=== PATIENT | female | born 1960 | race Caucasian/White ===

== ENCOUNTER 2020-02-24 09:14 | Emergency (ER) | payer OTHER ==
[2020-02-24 10:12] LABS: Hemoglobin 10.6 g/dL (12.0-16.0); Mean Corpuscular HGB CONC 29.3 g/dL (32.0-36.0); Mean Corpuscular Hemoglobin 26.3 pg (27.0-31.0); Mean Corpuscular Volume 89.8 fL (78.0-98.0); Platelet Count 668 thou/uL (130-400); RBC Distribution Width 13.9 % (11.5-14.5); Red Blood Cell (RBC) Count 4.04 mill/uL (4.20-5.40); White Blood Cell (WBC) Count 51.4 thou/uL (4.8-10.8)
[2020-02-24 10:13] LABS: ALT (SGPT) 8 U/L (8-55); AST (SGOT) 10 U/L (5-34); Albumin 3.3 g/dL (3.4-4.8); Alkaline Phosphatase 87 U/L (40-110); Anion Gap 16 mmol/L (10-20); BUN (Urea Nitrogen) 9 mg/dL (9.8-20.1); Bilirubin, Total 0.4 mg/dL (0.2-1.2); Calc. Creatinine Clearance 0 mL/min (70-130); Calcium 8.8 mg/dL (7.8-10.44); Carbon Dioxide 27 mmol/L (23-31); Chloride 94 mmol/L (98-107); Estimated GFR-MDRD Greater than 90; Globulin 3.8 g/dL (2.4-3.5); Glucose 135 mg/dL (80-115); MDiff Complete? YES; Manual Diff?? YES; Potassium 4.4 mmol/L (3.5-5.1); Protein, Total 7.1 g/dL (6.0-8.3); Sodium 133 mmol/L (136-145)
[2020-02-24] MEDS ORDERED: Sodium Chloride 0.9% 1,000 ML ONE ×2 (10:16→12:52)
[2020-02-24] MEDS ORDERED: Ventolin HFA Inhaler 60 PUFF INHALER ONE (10:16)
--- NOTE | 2020-02-24 10:22 | RAD ---
XR Chest Pa Lat STANDARD HISTORY: Shortness of breath COMPARISON: PET scan examination of 01/14/2020. FINDINGS: Heart size is enlarged. Right paratracheal density could be related to adenopathy. Soft tis samantha density along the right heart border is probably related to the prominent epicardial fat noted on previous PET scan. The lungs are clear of any infiltrative process. IMPRESSION: Cardiomegaly with findings that suggest some adenopathy in the region of the azygos node or right paratracheal region.
[2020-02-24] MEDS ORDERED: Morphine 2 MG/ML SYRINGE ONE (11:07)
--- NOTE | 2020-02-24 11:57 | CT ---
CTA Angio Chest W WO Con 02/24/2020 10:31 AM Indication: 59-year-old female with history of lung cancer, dyspnea and elevated d-dimer Technique: Multiple CTA images were obtained of the thorax with IV contrast. 3-D rendering: MIP summer nstructed images were created and reviewed. Comparison: PET/CT dated January 14, 2020 Findings: Pulmonary arteries: There is some mild mass effect on the main pulmonary arteries bilaterally due to adenopathy and pericardial effusion. No definite central or segmental pulmonary embolus is evident. Heart and Aorta: There is been interval development of a moderate to prominent sized pericardial eff usion. Mediastinum:There is worsening mediastinal lymphadenopathy. There is an enlarged window measuring 2.7 cm. There is a right paratracheal lymph node measuring 2 cm. There is a subcarinal lymph node measuring 1.7 cm. Lungs:The spiculated mass within the apical posterior segment of the left upper lobe has enlarged now measuring 2.3 x 2.1 cm were previously measured 1.5 x 1.8 cm. The additional pulmonary nodule within the left lung apex has also intervally enlarged now measuring 11 mm were previously measured 7 mm. Pleural space: Clear. Upper Abdomen: There are locules of free air seen within the upper abdomen from an identified source . There is diffuse fatty infiltration of liver. There is a stable 2.5 cm left adrenal nodule. There is an ill-defined 1.1 cm right adrenal lesion that was not definitely present on the comparison PET/C T. Osseous Structures: There is scattered degenerative and osteoarthritic change present. No acute frac ture or subluxation demonstrated. Soft tissues:No abnormality. Other findings:None. Impression: 1. No definite central or segmental pulmonary embolus. 2. Worsening moderate to prominent pericardial effusion 3. Enlarging left upper lobe pulmonary nodules, worsening mediastinal lymphadenopathy and new right a drenal lesion suspicious for worsening malignancy. 4. Nonspecific locules of free air within the upper abdomen. Recommend follow-up CT the abdomen and p chapis without additional IV contrast administration for additional characterization.
[2020-02-24] MEDS ORDERED: Iopamidol 370 76% 125 ML VIAL FS ONE (12:04)
[2020-02-24] MEDS ORDERED: Sodium Chloride 0.9% 100 ML BAG ONE (12:04)
--- NOTE | 2020-02-24 12:42 | CT ---
CT Abdomen Pelvis WO Con: 02/24/2020 11:54 AM HISTORY: Free air seen on CTA of the chest; dyspnea and elevated d-dimer COMPARISON: None. TECHNIQUE: Multiple contiguous axial images were obtained and a CT of the abdomen and pelvis without IV contrast . Coronal and sagittal reformats were performed. FINDINGS: This examination is limited for the evaluation of solid organs and vascular structures due to the lac k of intravenous contrast. Lower Chest: There is a moderate to large pericardial effusion. Abdomen: Liver: within normal limits. Bile Ducts: Normal caliber. Gallbladder: No calcified gallstones. Normal caliber wall. Pancreas: within normal limits. Spleen: within normal limits. Adrenals: 2.6 cm left adrenal mass with mean Hounsfield unit value of 6 Kidneys: Contrast in both kidneys is seen from recent contrast exam. Pelvis: Reproductive Organs: No pelvic mass Ureters: Contain contrast from recent contrast exam. Bladder: Filled with contrast from recent contrast examination. This produces streak artifact limitin g evaluation of the pelvis. Bowel: Normal caliber. Scattered diverticula in the colon. Normal appendix Mesenteric Lymph Nodes: No enlarged mesenteric lymph nodes. Peritoneum: A few bubbles of free air are seen in the upper abdomen and within the umbilicus. No free fluid or stranding changes in the abdomen or pelvis. Vessels: Atherosclerotic calcifications in the aorta Retroperitoneum: Within normal limits. Abdominal Wall: There is a small umbilical hernia containing predominantly fat Bones: Degenerative changes in the spine. The patient has a right hip prosthesis. There is a 4.1 cm f luid collection adjacent to the right hip. IMPRESSION: 1. Small bubbles of nonspecific free air in the upper abdomen. This is concerning for perforated visc us but the site of possible perforation is unable to be identified. 2. Diverticulosis 3. Left adrenal adenoma
[2020-02-24 13:05] LABS: Bilirubin Negative (Negative); Blood, Urine Negative (Negative); Clarity Clear (Clear); Glucose, Urine (Dipstick) Negative (Negative); Ketone, Urine 40 mg/dL (Negative); Leukocyte Negative (Negative); Nitrite Negative (Negative); Protein, Urine (Dipstick) Negative (Neg-Trace); Urobilinogen 0.2 mg/dL (Less than 2); pH, Urine 6.5 (5.0-9.0)
== END 2020-02-24 13:30 | disposition short-term general hospital (02) ==
LOC: MADERS 09:14
DX: I31.3 Pericardial effusion (noninflammatory) (principal); D72.829 Elevated white blood cell count, unspecified; D47.3 Essential (hemorrhagic) thrombocythemia; R14.0 Abdominal distension (gaseous); C34.90 Malignant neoplasm of unspecified part of unspecified bronchus or lung; C79.89 Secondary malignant neoplasm of other specified sites; J44.9 Chronic obstructive pulmonary disease, unspecified; F41.9 Anxiety disorder, unspecified; Z87.891 Personal history of nicotine dependence; Z79.899 Other long term (current) drug therapy
CPT/HCPCS: 36415; 71046; 71275; 74176; 80053; 81003; 83605; 83880; 84484; 85025; 85379; 87040; 93005; 96361; 96374; J2270; J3490; J7050; Q9967

== ENCOUNTER 2020-09-18 13:23 | Emergency (ER) | payer OTHER | END 2020-09-18 14:10 | disposition home or self-care (01) | LOC: MADERS 13:23 | DX: K42.9 Umbilical hernia without obstruction or gangrene (principal); Z85.118 Personal history of other malignant neoplasm of bronchus and lung; Z85.830 Personal history of malignant neoplasm of bone; Z87.891 Personal history of nicotine dependence | CPT/HCPCS: 99283 ==

== ENCOUNTER 2021-07-24 14:01 | Emergency (ER) | payer OTHER ==
[~2021-07-24 14:01] MED LIST: Iopamidol 370 76% 125 ML VIAL FS ONE
[2021-07-24] MEDS ORDERED: Sodium Chloride 0.9% 100 ML BAG FS ONE (14:02)
[2021-07-24] MEDS ORDERED: Iopamidol 370 76% 125 ML VIAL FS ONE (14:02)
[2021-07-24 14:45] LABS: #Basophils 0.1 thou/uL (0.0-0.2); #Lymphocytes 0.9 thou/uL (1.20-3.40); #Monocytes 0.6 thou/uL (0.11-0.59); #Neutrophils 10.9 thou/uL (1.40-6.50); %Eosinophils 0.3 % (0.0-10.0); %Monocytes 5.1 % (0.0-10.0); %Neutrophils 86.5 % (42.0-75.0); Hemoglobin 13.3 g/dL (12.0-16.0); Mean Corpuscular HGB CONC 32.5 g/dL (32.0-36.0); Mean Corpuscular Hemoglobin 31.1 pg (27.0-31.0); Mean Corpuscular Volume 95.7 fL (78.0-98.0); Mean Platelet Volume 6.6 fL (7.4-10.4); Platelet Count 263 thou/uL (130-400); RBC Distribution Width 15.5 % (11.5-14.5); Red Blood Cell (RBC) Count 4.28 mill/uL (4.20-5.40); White Blood Cell (WBC) Count 12.6 thou/uL (4.8-10.8)
[2021-07-24 15:00] LABS: ALT (SGPT) 31 U/L (8-55); AST (SGOT) 14 U/L (5-34); Albumin 3.9 g/dL (3.4-4.8); Alkaline Phosphatase 55 U/L (40-110); Anion Gap 11 mmol/L (10-20); BUN (Urea Nitrogen) 23 mg/dL (9.8-20.1); Bilirubin, Total 0.5 mg/dL (0.2-1.2); Calc. Creatinine Clearance 0 mL/min (70-130); Calcium 9.1 mg/dL (7.8-10.44); Carbon Dioxide 31 mmol/L (23-31); Chloride 103 mmol/L (98-107); Globulin 2.8 g/dL (2.4-3.5); Glucose 105 mg/dL (80-115); Lipase 19 U/L (8-78); Potassium 4.3 mmol/L (3.5-5.1); Protein, Total 6.7 g/dL (5.8-8.1); Sodium 141 mmol/L (136-145)
[2021-07-24] MEDS ORDERED: HYDROcodone/Acetaminophen 10/325 mg Tablet ONE (16:26)
[2021-07-24 16:30] LABS: Bilirubin Negative (Negative); Blood, Urine Trace (Negative); Glucose, Urine (Dipstick) Negative (Negative); Ketone, Urine Negative (Negative); Leukocyte Negative (Negative); Nitrite Negative (Negative); Protein, Urine (Dipstick) Negative (Neg-Trace); Urobilinogen 0.2 mg/dL (Less than 2); pH, Urine 7.5 (5.0-9.0)
[2021-07-24 16:32] LABS: Clarity Hazy (Clear)
[2021-07-24 16:39] LABS: Bacteria/HPF Rare-Few HPF (None Seen); RBC/HPF 0-3 HPF (0-3); Squamous Epithelial 0-3 HPF (0-3); WBC/HPF None Seen HPF (0-3)
[2021-07-24 17:13] LABS: SARS-CoV-2 NAA Rapid Test Not Detected (NotDetected)
== END 2021-07-24 18:08 | disposition short-term general hospital (02) ==
LOC: MADERS 14:01
DX: I26.99 Other pulmonary embolism without acute cor pulmonale (principal); C34.31 Malignant neoplasm of lower lobe, right bronchus or lung; Z20.822 Contact with and (suspected) exposure to COVID-19; E66.9 Obesity, unspecified; Z87.891 Personal history of nicotine dependence; Z79.899 Other long term (current) drug therapy
CPT/HCPCS: 71275; 80053; 81003; 81015; 83605; 83690; 83880; 84484; 85025; 93005; 94760; J3490; J7620; Q9967; U0002

== ENCOUNTER 2021-08-06 16:49 | Emergency (ER) | payer OTHER ==
[2021-08-06] MEDS ORDERED: Sodium Chloride 0.9% 100 ML BAG FS ONE (16:50)
[2021-08-06 18:38] LABS: #Basophils 0.2 thou/uL (0.0-0.2); #Eosinphils 0.1 thou/uL (0.0-0.7); #Lymphocytes 1.2 thou/uL (1.20-3.40); %Basophils 1.4 % (0.0-1.0); %Eosinophils 0.7 % (0.0-10.0); %Lymphocytes 9.3 % (21.0-51.0); %Neutrophils 80.5 % (42.0-75.0); Hemoglobin 12.2 g/dL (12.0-16.0); Mean Corpuscular HGB CONC 31.8 g/dL (32.0-36.0); Mean Corpuscular Hemoglobin 31.4 pg (27.0-31.0); Mean Corpuscular Volume 98.7 fL (78.0-98.0); Mean Platelet Volume 6.1 fL (7.4-10.4); Platelet Count 363 thou/uL (130-400); RBC Distribution Width 16.3 % (11.5-14.5); Red Blood Cell (RBC) Count 3.87 mill/uL (4.20-5.40); White Blood Cell (WBC) Count 12.4 thou/uL (4.8-10.8)
[2021-08-06] MEDS ORDERED: Furosemide 40 MG/4 ML VIAL ONE (18:50)
[2021-08-06] MEDS ORDERED: methylPREDNISolone Sod Succ/PF 125 MG/2 ML VIAL ONE (18:50)
[2021-08-06] MEDS ORDERED: Sodium Chloride 0.9% 50 ML ONE (18:51)
[2021-08-06 19:00] LABS: ALT (SGPT) 23 U/L (8-55); AST (SGOT) 13 U/L (5-34); Albumin 3.7 g/dL (3.4-4.8); Alkaline Phosphatase 48 U/L (40-110); Anion Gap 15 mmol/L (10-20); BUN (Urea Nitrogen) 16 mg/dL (9.8-20.1); Bilirubin, Total 0.4 mg/dL (0.2-1.2); Calc. Creatinine Clearance 0 mL/min (70-130); Calcium 8.5 mg/dL (7.8-10.44); Carbon Dioxide 28 mmol/L (23-31); Chloride 98 mmol/L (98-107); Globulin 2.3 g/dL (2.4-3.5); Glucose 122 mg/dL (80-115); Potassium 4.1 mmol/L (3.5-5.1); Sodium 137 mmol/L (136-145)
[2021-08-06 19:01] LABS: CRP (Inflammatory) 5.16 mg/dL (= or < 0.5)
[2021-08-06 19:19] LABS: SARS-CoV-2 NAA Rapid Test Not Detected (NotDetected)
== END 2021-08-06 21:55 | disposition short-term general hospital (02) ==
LOC: MADERS 16:49
DX: C78.02 Secondary malignant neoplasm of left lung (principal); C78.01 Secondary malignant neoplasm of right lung; I26.99 Other pulmonary embolism without acute cor pulmonale; Z20.822 Contact with and (suspected) exposure to COVID-19; Z87.891 Personal history of nicotine dependence; E66.9 Obesity, unspecified
CPT/HCPCS: 0240U; 71045; 71275; 80053; 82550; 83605; 83880; 84484; 85025; 85379; 86140; 93005; 94760; 96365; 96375; J1940; J2930; J3490